=== PATIENT | female | born 1930 | race Caucasian/White ===

== ENCOUNTER 2018-05-23 05:42 | Observation (INO) ==
--- NOTE | 2018-05-23 05:48 | Emergency Department Note ---
Disposition Clinical Impression: History of fall, Inability to ambulate due to knee Left knee pain Qualifiers: Chronicity: acute Qualified Code(s): M25.562 - Pain in left knee Disposition: Admitted As Inpatient Condition: Fair Referrals: Juan R Garcia DO [Primary Care Provider] - Forms: ED Satisfaction Letter Lower Extremity Injury HPI - General Chief Complaint: ED Extremity Injury, Lower Stated Complaint: fall, left knee pain Time Seen by Provider: 05/23/18 05:45 Source: patient, EMS Mode of arrival: EMS Limitations: no limitations Nursing Notes Reviewed: Yes Vital Signs Reviewed: Yes - History of Present Illness HPI Narrative: Patient relates she lives with her in [facility]. She got up this early a.m. with her walker to go to the bathroom and fell on her way back to the bed. She fell to the floor and was unable to get up. She states she has had both knees replaced and his been told that there is some loosening and problem in the left knee replacement but that she is not a candidate for surgery per her quality assurance nurse. She felt as if the left knee had again given out and she fell to the ground. When assisted up she has had severe pain in the left knee with weightbearing such that she cannot bear weight or ambulate. She has no pain at rest. This pain is new for her. She denies any numbness or tingling distally in the lower extremities. She denies injury to her hip, pelvis or back. She has not had injury to her head, neck or upper extremities. She denies any other reason for falling. She has not had any type of stroke, seizure, palpitation or chest pain. She has not been having vomiting, diarrhea or bloody or black stools. She denies shortness of breath or fevers or chills. She denies any recent change in medicines. She indicates her sole trouble at this time is her left knee. She has been brought in by EMS. They were on scene for over an hour as she initially just wanted a lift assist. She was helped into a chair and she tried multiple times to stand and bear weight on the left leg but was ultimately unable and then consented to be transported in for evaluation. Pt Subjective Complaint: knee injury Injury location: Left knee Onset (ago): Just [employer] Mechanism of Injury: fall Context: fall, walking Place: home Pain Severity: moderate Improves with: rest Worsens with: weight bearing, movement, palpation Associated symptoms: Reports: unable to bear weight. Denies: snap/pop sensation, paresthesias, deformity - Related Data Home Medications Medication Instructions Recorded Confirmed Aspirin [Adult Aspirin Regimen] 81 mg PO DAILY 09/21/17 05/23/18 Gabapentin [Neurontin] 100 mg PO TID 09/21/17 05/23/18 Mirabegron [Myrbetriq] 50 mg PO DAILY 09/21/17 05/23/18 Multivit-Min/Folic Acid/Vit K1 1 each PO DAILY 09/21/17 05/23/18 [Multi For Her 50 Plus Softgel] RX: Doxycycline 100 mg PO DAILY 09/21/17 05/23/18 Symbicort 160/4.5 2 puff PO BID 09/21/17 05/23/18 Ferrous Sulfate [High Potency Iron] 134 mg PO QAM 05/23/18 05/23/18 Furosemide [Lasix] 40 mg PO DAILY 05/23/18 05/23/18 Metoprolol Succinate [Toprol Xl] 25 mg PO QAM 05/23/18 05/23/18 Potassium Chloride [Klor-Con 10] 10 meq PO QAM 05/23/18 05/23/18 RX: Primidone [Mysoline] 150 mg PO HS 05/23/18 05/23/18 Spironolactone [Aldactone] 25 mg PO DAILY 05/23/18 05/23/18 Topiramate [Topamax] 25 mg PO QAM 05/23/18 05/23/18 Allergies Allergy/AdvReac Type Severity Reaction Status Date / Time Sulfa (Sulfonamide Allergy Anaphylaxis Verified 09/21/17 18:19 Antibiotics) All systems ED: reviewed and negative except as stated. Past Medical History - Past Medical History Attestation: Yes The following information was validated with the patient. Source: patient, nursing notes reviewed Medical history: Reports: arthritis, asthma Surgical history: Reports: hip replacement (Right), knee replacement (Bilateral) Psychiatric history: Reports: anxiety - Social History Smoking Status: Never smoker Smokeless Tobacco Status: No Alcohol use: Reports: none Drug use: Reports: none Physical Exam - General Limitations: no limitations General appearance: alert, in no apparent distress - Head Head exam: atraumatic, normocephalic, normal inspection - Eye Eye exam: Present: normal appearance, PERRL, EOMI - ENT ENT exam: normal exam, normal oropharynx, mucous membranes moist - Neck Neck exam: Present: normal inspection, full ROM, trachea midline - Chest Chest inspection: Present: normal inspection, symmetric chest wall rise - Respiratory Respiratory exam: Present: normal lung sounds bilaterally. Absent: respiratory distress, wheezes, prolonged expiratory phase - Cardiovascular Cardiovascular exam: Present: regular rate, normal rhythm, normal heart sounds - Abdominal Exam Abdominal exam: Present: soft, Non-Tender. Absent: tenderness, distention, guarding, rebound, rigidity - Extremities Exam Extremities exam: Present: normal inspection, full ROM, normal capillary refill. Absent: tenderness, pedal edema - Expanded Lower Extremity Exam Neurovascular/Tendon exam: Present: normal capillary refill. Absent: motor deficit, sensory deficit, tendon deficit Gait: not tested/not observed - Back Exam Back exam: Present: normal inspection, full ROM. Absent: tenderness, vertebral tenderness - Neurological Exam Neurological exam: Present: alert, oriented X3, CN II-XII intact. Absent: motor sensory deficit - Psychiatric Psychiatric exam: Present: normal affect, normal mood - Skin Skin exam: Present: warm, dry, intact, normal color. Absent: diaphoresis, pallor Course Course Narrative: Imaging results are discussed with the patient. Currently she has significant pain with any standing or weightbearing such that I question her ability to return to independent living. I have discussed this with the patient. She states she has had evaluation of her left knee at [facility], [facility] and by Dr. Belle in [facility]. She has had a cardiac issue identified this summer and she has not been cleared for any surgical intervention. She relates on a daily basis she gets severe pain in the knee by the end of the day but is able to position the leg at night so that she has no pain and cannot rest. She Has no pain at this time but now has to severe pain to allow her to ambulate at all. I advised the patient that, upon completion of the radiology reading, that I will contact Dr. Hdz for observation and physical therapy assessment. 0720: The patient's imaging has just been red. There is no evidence for acute fracture or hardware compromise to the left hip or left knee. We have attempted to stand the patient but she will not bear weight on the left leg. A page has been placed to Dr. Hdz for her observation and further care. 0725: Dr. Hdz's accepted this patient to the floor. He agrees with physical therapy assessment and a consult to [facility] for an expedited consult in the hospital. 0730: The nurse mineral wool insulation supervisor for the hospital floor advises that they have to potential discharges, to swing beds coming in and are full at this time. We will observe the patient in the department and recontact Dr. Hdz about his preferred disposition and how many discharges he thinks he will have this morning. Vital Signs Temperature 99.5 F 05/23/18 05:45 Pulse Rate 68 05/23/18 05:45 Respiratory Rate 18 05/23/18 05:45 Blood Pressure 131/56 05/23/18 05:45 O2 Sat by Pulse Oximetry 97 05/23/18 05:45 Temperature 99.5 F 05/23/18 05:45 Pulse Rate 68 05/23/18 07:27 Respiratory Rate 18 05/23/18 07:27 Blood Pressure 115/51 05/23/18 07:27 O2 Sat by Pulse Oximetry 95 05/23/18 07:27 Oxygen Delivery Oxygen Delivery Room Air Extremity Injury, Lower - Differential Diagnosis Likely: sprain/strain, fracture - Medical Records Medical records reviewed: Yes I reviewed the patient's medical records. - Radiology Data Radiology results reviewed: Yes I reviewed the patient's radiology results. Two-view x-rays performed of the left knee with for films. This shows an intact prosthesis which appears to be securely cemented. There is no evidence for periprosthetic fracture. Patient does not have abnormal swelling or effusion. This is on my interpretation. Two-view series is obtained of the left hip and pelvis. This does not demonstrate evidence for acute hip fracture or dislocation. Patient appears to have some degenerative changes about the left hip. She is status post a right hip replacement. Pelvis is without evidence for fracture. This is on my interpretation. Impressions Knee X-Ray 05/23/18 05:46 IMPRESSION: Status post left total knee arthroplasty. No hardware complications. No acute osseous abnormality in the left knee. D/ / Theron Denton MD / Theron Denton MD Interpreting Provider: Theron Denton MD Hip X-Ray 05/23/18 06:20 IMPRESSION: No acute fracture or malalignment. D/ / Luis Briones MD / Luis Briones MD Interpreting Provider: Luis Briones MD
[2018-05-23] MEDS ORDERED: *HR* HYDROcodone/Acet 5/325 mg TABLET PO ONE (07:25)
[2018-05-23] MEDS ORDERED: Naloxone 0.4 MG/ML INJ IVP PRN (10:30)
[2018-05-23] MEDS ORDERED: Acetaminophen 325 MG TABLET PO PRN (10:30)
[2018-05-23] MEDS ORDERED: Ibuprofen 400 MG TABLET PO PRN (10:30)
[2018-05-23] MEDS ORDERED: traMADol 50 MG TABLET PO PRN (10:30)
[2018-05-23] MEDS ORDERED: Doxycycline 100 MG CAPSULE PO SCH (10:30)
[2018-05-23] MEDS: Budesonide/Formoterol 160/4.5 1 PUFF INH IH SCH ×2 (11:23→22:59)
[2018-05-23] MEDS: Furosemide 40 MG TABLET PO SCH (12:25)
[2018-05-23] MEDS: Spironolactone 25 MG TABLET PO SCH (12:25)
[2018-05-23] MEDS: Metoprolol XL (24 HR) Succ 25 MG TAB.ER.24H PO SCH (12:26)
[2018-05-23] MEDS: (Mirabegron [Myrbetriq] 50 MG) PO SCH (12:32)
[2018-05-23] MEDS: Multivit/Ca/Min/Fe/FA 1 TAB TABLET PO SCH (12:33)
[2018-05-23] MEDS: Aspirin Enteric Coated 81 MG Tablet PO SCH (12:33)
[2018-05-23] MEDS: Topiramate 25 MG TABLET PO SCH (12:34)
[2018-05-23] MEDS: Gabapentin 100 MG CAPSULE PO SCH ×3 (12:36→20:29)
--- NOTE | 2018-05-23 15:54 | Internal Med History&Physical ---
Date of Encounter: 05/23/18 Time of Encounter: 15:05 Internal Medicine - H&P: HPI Chief complaint: Fall, knee and ankle pain Admitted From: Emergency Dept Plans for Post Hospital Care: Home History of present illness: Ms. Oliveira is a 87 year old female who came to emergency room after she had a fall in her bedroom after returning from the bathroom. She states her knee "gave out" and she fell to the floor. Her was unable to get her off the floor so EMS was called. She was brought to emergency room and evaluated and admitted to [facility] for ongoing care needs. She reports she had bilateral total knee replacements 2001. She states she developed pain in her left knee in early summer 2017 without associated injury. She saw orthopedic staff at [facility] and had 2 different braces placed over the next few weeks with no relief. She then went to [facility] to a satellite of [facility] orthopedic group and was told she had a periprosthetic fracture but surgery was not recommended because of her cardiac condition. Her [facility] skeletal history significant otherwise for previous left foot surgery, bilateral shoulder replacements, low back surgery, and right total hip replacement. She denies gout. Past Med Surg Social Fam HX - Past Medical History Medical history: arthritis, asthma Additional medical history: "Tremors, undiagnosed, not Parkinsons" Psychiatric history: anxiety - Past Surgical History Surgical History: hip replacement, knee replacement Additional surgical history: Bilat knee replacements 2001. right hip replacement. Bilat shoulder replacements. Right foot ORIF. "stimulator for tremors" - Social History Smoking Status: Never smoker Smokeless Tobacco Status: No Alcohol use: none Drug use: none Internal Medicine - H&P: Meds Aspirin [Adult Aspirin Regimen] 81 mg PO DAILY 09/21/17 [History] Doxycycline 100 mg PO DAILY 09/21/17 [History] Gabapentin [Neurontin] 100 mg PO TID 09/21/17 [History] Mirabegron [Myrbetriq] 50 mg PO DAILY 09/21/17 [History] Multivit-Min/Folic Acid/Vit K1 [Multi For Her 50 Plus Softgel] 1 each PO DAILY 09/21/17 [History] Symbicort 160/4.5 2 puff PO BID 09/21/17 [History] Ferrous Sulfate [High Potency Iron] 134 mg PO QAM 05/23/18 [History] Furosemide [Lasix] 40 mg PO DAILY 05/23/18 [History] Metoprolol Succinate [Toprol Xl] 25 mg PO QAM 05/23/18 [History] Potassium Chloride [Klor-Con 10] 10 meq PO QAM 05/23/18 [History] Primidone [Mysoline] 150 mg PO HS 05/23/18 [History] Spironolactone [Aldactone] 25 mg PO DAILY 05/23/18 [History] Topiramate [Topamax] 25 mg PO QAM 05/23/18 [History] Allergy/AdvReac Type Severity Reaction Status Date / Time Sulfa (Sulfonamide Allergy Anaphylaxis Verified 09/21/17 18:19 Antibiotics) All Systems PM: A 10-system review of systems was performed and is negative for pertinent fi ndings except as documented above in the HPI. Review of systems: Gen.: She states her weight has decreased approximately 17 pounds in the past year Cardiovascular: She claims history of heart failure but she does not know detail results of an echocardiogram done earlier this year at [facility]. She reports she had a stress test also at [facility] without further intervention recommended. She has history of hypertension but denies MA DVT or pulmonary embolus Respiratory: She is a lifelong nonsmoker but reports history of asthma. GI: She denies disorders of her liver gallbladder or exocrine pancreas : She has overactive bladder. She denies other kidney or bladder disorders. Neurologic: She has essential tremor and has had deep brain stimulator placed. She denies large distribution strokes or seizures. Endocrine: She denies diabetes thyroid disease orhyperlipidemia Hematology/oncology: She has history of anemia. She denies internal malignancies or other blood disorders. Psychiatric: She denies anxiety depression other mental health issues. [place] skeletal: As per history of present illness - Constitutional Vitals: Temp Pulse Resp BP Pulse Ox 97.8 F 74 20 93/49 97 05/23/18 12:20 05/23/18 12:20 05/23/18 12:20 05/23/18 12:20 05/23/18 12:20 Internal Med - H&P Results - Impressions ITS Impressions Knee X-Ray 05/23/18 05:46 IMPRESSION: Status post left total knee arthroplasty. No hardware complications. No acute osseous abnormality in the left knee. D/ / Theron Denton MD / Theron Denton MD Interpreting Provider: Theron Denton MD Hip X-Ray 05/23/18 06:20 IMPRESSION: No acute fracture or malalignment. D/ / Luis Briones MD / Luis Briones MD Interpreting Provider: Luis Briones MD - VTE Documentation of Mechanical Device: Graduated compression elastic hosiery
[2018-05-23 16:11] LABS: Basophils % 0.2 %; Eosinophils # 0.1 K/mcL (0.0-0.6); Eosinophils % 0.9 %; Hematocrit 30.5 % (35.3-44.9); Hemoglobin 10.1 g/dL (11.5-15.4); Immature Granulocytes % 0.3 % (0-4); Lymphocytes # 0.9 K/mcL (0.6-4.6); Mean Corpuscular HGB Conc 33.1 g/dL (31.6-35.5); Mean Corpuscular Hemoglobin 31.8 pg (28.0-33.3); Mean Corpuscular Volume 95.9 fL (83.0-100.0); Mean Platelet Volume 11.3 fL (9.4-12.4); Monocytes # 0.7 K/mcL (0.0-1.3); Monocytes % 11.3 %; Neutrophils # 4.7 K/mcL (1.6-8.9); Platelet Count 127 K/mcL (140-400); Red Blood Count 3.18 M/mcL (3.82-4.97); Red Cell Distribution Width 12.6 % (11.5-14.5); Segmented Neutrophils % 73.3 %
[2018-05-23 16:31] LABS: Alanine Aminotransferase 15 Units/L (7-52); Albumin 3.4 g/dL (3.5-5.7); Albumin/Globulin Ratio 1.3 (1.1-2.2); Alkaline Phosphatase 67 Units/L (34-104); Aspartate Amino Transferase 16 Units/L (13-39); BUN/Creatinine Ratio 42 (6-26); Bilirubin,Total 0.5 mg/dL (0.3-1.0); Blood Urea Nitrogen 34 mg/dL (8-23); Calcium 8.8 mg/dL (8.6-10.3); Carbon Dioxide 32 mEq/L (23-29); Chloride 101 mEq/L (98-107); Globulin 2.6 g/dL (2.4-3.5); Glucose 114 mg/dL (70-105); Magnesium 2.3 mg/dL (1.6-2.6); Osmolality,Calculated 296 (280-300); Potassium 3.9 mEq/L (3.5-5.1); Sodium 139 mEq/L (136-145); eGFR For Non-African Americans > 60 (> 60)
[2018-05-23] MEDS: *HR* HYDROcodone/Acet 5/325 mg TABLET PO PRN ×2 (18:14→23:11)
[2018-05-23] MEDS: 0.45 % Sodium Chloride w/KCl 20 MEQ/1,000 ML MLS IVC SCH (18:14)
[2018-05-23] MEDS ORDERED: Primidone 50 MG TABLET PO SCH (21:00)
[2018-05-24 06:18] LABS: Basophils % 0.5 %; Eosinophils # 0.2 K/mcL (0.0-0.6); Eosinophils % 2.6 %; Hematocrit 30.6 % (35.3-44.9); Immature Granulocytes % 0.2 % (0-4); Lymphocytes # 1.4 K/mcL (0.6-4.6); Lymphocytes % 23.2 %; Mean Corpuscular HGB Conc 32.7 g/dL (31.6-35.5); Mean Corpuscular Hemoglobin 31.6 pg (28.0-33.3); Mean Corpuscular Volume 96.8 fL (83.0-100.0); Mean Platelet Volume 11.6 fL (9.4-12.4); Monocytes # 0.7 K/mcL (0.0-1.3); Monocytes % 12.7 %; Neutrophils # 3.5 K/mcL (1.6-8.9); Platelet Count 120 K/mcL (140-400); Red Blood Count 3.16 M/mcL (3.82-4.97); Red Cell Distribution Width 12.8 % (11.5-14.5); Segmented Neutrophils % 60.8 %
[2018-05-24 06:49] LABS: BUN/Creatinine Ratio 33 (6-26); Blood Urea Nitrogen 24 mg/dL (8-23); Calcium 8.6 mg/dL (8.6-10.3); Carbon Dioxide 29 mEq/L (23-29); Chloride 103 mEq/L (98-107); Glucose 104 mg/dL (70-105); Osmolality,Calculated 292 (280-300); Potassium 3.9 mEq/L (3.5-5.1); Sodium 139 mEq/L (136-145); eGFR For Non-African Americans > 60 (> 60)
[2018-05-24 09:37] LABS: % Iron Saturation 15 % (15-50); Iron 34 mcg/dL (50-170); Transferrin 167 mg/dL (203-362)
[2018-05-24 10:03] LABS: Ferritin 178 ng/mL (10-120)
[2018-05-24] MEDS: Budesonide/Formoterol 160/4.5 1 PUFF INH IH SCH (10:05)
[2018-05-24 10:10] LABS: Folate > 22.3 ng/mL (3.0-16.0); Vitamin B12 467 pg/mL (250-1100)
[2018-05-24] MEDS: Multivit/Ca/Min/Fe/FA 1 TAB TABLET PO SCH (11:02)
[2018-05-24] MEDS: Gabapentin 100 MG CAPSULE PO SCH ×2 (11:02→14:30)
[2018-05-24] MEDS: Furosemide 40 MG TABLET PO SCH (11:03)
[2018-05-24] MEDS: Aspirin Enteric Coated 81 MG Tablet PO SCH (11:03)
[2018-05-24] MEDS: Topiramate 25 MG TABLET PO SCH (11:03)
[2018-05-24] MEDS: Spironolactone 25 MG TABLET PO SCH (11:03)
[2018-05-24] MEDS: Metoprolol XL (24 HR) Succ 25 MG TAB.ER.24H PO SCH (11:03)
[2018-05-24] MEDS: (Mirabegron [Myrbetriq] 50 MG) PO SCH (11:03)
[2018-05-24 11:44] VITALS: BP 110/61
--- NOTE | 2018-05-24 12:48 | Discharge Summary ---
Orders not resulted at time of discharge: Pending orders 05/23/18 14:30 CT 3D reconstruction [CT] Routine Date of Encounter: 05/24/18 Time of Encounter: 12:30 - Discharge Diagnosis (1) Tibia fracture Priority: Primary Status: Acute Qualifiers: Encounter type: initial encounter Tibia location: proximal Fracture type: closed Fracture morphology: unspecified fracture morphology Laterality: left Qualified Code(s): S82.102A - Unspecified fracture of upper end of left tibia, initial encounter for closed fracture (2) Nonischemic cardiomyopathy Priority: Secondary Status: Chronic (3) Anemia Priority: Secondary Status: Acute Qualifiers: Anemia type: unspecified type Qualified Code(s): D64.9 - Anemia, unspecified Hospital course: Ms. Oliveira is a 87 year old female who came to emergency room after she had a fall in her bedroom after returning from the bathroom. She states her knee "gave out" and she fell to the floor. Her was unable to get her off the floor so EMS was called. She was brought to emergency room and evaluated and admitted to [facility] for ongoing care needs. Initial orders were written by the emergency room physician. I saw her on May 23 and performed the history and physical. X-rays of knee and hip in emergency room showed no evidence of fracture. She complained of severe left knee pain so I ordered CT of the knee which showed suspected periprosthetic fracture along the lateral tibia with a large knee effusion. Ankle x-ray showed no fracture. I spoke with the patient's orthopedist at [facility] who recommended she be transferred to [place]. Arrangements were made afternoon of May 24 for transfer. Review of records from [facility] showed heart catheter December 2017 showing no significant coronary artery disease but LVEF of 35-40%. BN peptide on May 24 was minimally elevated at 155 and she had no symptoms of heart failure. Anemia testing showed iron 34, transferrin saturation 15%, transferrin 167, ferritin 178, B12 467, and folate >22.3. - Time Spent with Patient Total time spent providing and/or coordinating discharge services: - Discharge Medications Home Medications: Aspirin [Adult Aspirin Regimen] 81 mg PO DAILY 09/21/17 [History] Doxycycline 100 mg PO DAILY 09/21/17 [History] Gabapentin [Neurontin] 100 mg PO TID 09/21/17 [History] Mirabegron [Myrbetriq] 50 mg PO DAILY 09/21/17 [History] Multivit-Min/Folic Acid/Vit K1 [Multi For Her 50 Plus Softgel] 1 each PO DAILY 09/21/17 [History] Symbicort 160/4.5 2 puff PO BID 09/21/17 [History] Ferrous Sulfate [High Potency Iron] 134 mg PO QAM 05/23/18 [History] Furosemide [Lasix] 40 mg PO DAILY 05/23/18 [History] Metoprolol Succinate [Toprol Xl] 25 mg PO QAM 05/23/18 [History] Potassium Chloride [Klor-Con 10] 10 meq PO QAM 05/23/18 [History] Primidone [Mysoline] 150 mg PO HS 05/23/18 [History] Spironolactone [Aldactone] 25 mg PO DAILY 05/23/18 [History] Topiramate [Topamax] 25 mg PO QAM 05/23/18 [History] Allergies/Adverse Reactions: Allergy/AdvReac Type Severity Reaction Status Date / Time Sulfa (Sulfonamide Allergy Anaphylaxis Verified 09/21/17 18:19 Antibiotics) Date of admission: 05/23/18 10:26 Primary care physician: Juan R Garcia DO Consults: 05/23/18 10:30 Consult to Physical Therapy [CONS] Routine Comment: Evaluate, develop and implement POC Reason for Consult: Assessment for ability and safety and ambulation. Does patient have active BEDREST order?: No Is patient medically & hemodynamically stable?: Yes Patient assessed for mobility or mobilized this visit?: Yes - Constitutional Vitals: Temp Pulse Resp BP Pulse Ox 98.2 F 86 18 110/61 97 05/24/18 11:00 05/24/18 11:00 05/24/18 11:00 05/24/18 11:00 05/24/18 11:00 - Patient Status Disposition: Transfer Other Condition: Fair - Discharge Instructions Follow Up With: Juan R Garcia DO [Primary Care Provider] - 1 week - VTE Documentation of Mechanical Device: Graduated compression elastic hosiery
[2018-05-24] MEDS ORDERED: *HR* HYDROcodone/Acet 5/325 mg TABLET PO PRN (14:13)
[2018-05-24] MEDS: 0.45 % Sodium Chloride w/KCl 20 MEQ/1,000 ML MLS IVC SCH (16:51)
== END 2018-05-24 18:00 | disposition other institution (70) ==
LOC: INPPIK 05:42 → EMEROOPIK 05:42 → INPPIK 10:39
PROVIDERS: ADMIT Internal Medicine; ATTEND Internal Medicine

== ENCOUNTER 2018-08-29 16:16 | Inpatient (IN) ==
--- NOTE | 2018-08-29 16:22 | Emergency Department Note ---
Disposition Clinical Impression: Pneumonia, Weakness Disposition: Admitted As Inpatient Condition: Fair Forms: ED Satisfaction Letter Time of Disposition: 17:39 SOB HPI - General Chief Complaint: ED Shortness of Breath/Dyspnea Stated Complaint: deep cough, weak, failed outpt tx for pneumonia Time Seen by Provider: 08/29/18 16:18 Source: patient Mode of arrival: wheelchair Limitations: age Nursing Notes Reviewed: Yes Vital Signs Reviewed: Yes - History of Present Illness 87-year-old female seen at family physician's office today for recheck from recent case of pneumonia who presents with increasing weakness cough congestion shortness of breath failed outpatient therapy treatment for pneumonia. Patient's been having fever cough congestion shortness of breath inability to get up and get about dyspnea with activity denies any diarrhea melena hematochezia hematemesis denies any numbness tingling weakness recently gain or weight loss all systems have been reviewed and are otherwise negative Pt Subjective Complaint: shortness of breath Onset (ago): week(s) (3) Context: recent illness Severity: moderate, severe Consistency/Duration: intermittent Improves with: nothing Worsens with: exertion, movement, coughing Associated symptoms: Reports: fever, cough, wheezing, sputum production, orthopnea. Denies: lower extremity pain, parasthesias, palpitations, hemoptys is, diaphoresis, nausea/vomiting, abdominal pain, sense of impending doom Treatment prior to arrival: other (Family physician antibiotics) Cough present: Yes Cough Description: Involuntary, Productive, Weak Cough Frequency: Intermittent Sputum production: Yes Sputum Amount: Small Sputum Color: Yellow - Related Data Home Medications Medication Instructions Recorded Confirmed Aspirin [Adult Aspirin Regimen] 81 mg PO DAILY 09/21/17 08/16/18 Doxycycline 100 mg PO DAILY 09/21/17 08/16/18 Gabapentin [Neurontin] 100 mg PO TID 09/21/17 08/16/18 Mirabegron [Myrbetriq] 50 mg PO DAILY 09/21/17 08/16/18 Multivit-Min/Folic Acid/Vit K1 1 each PO DAILY 09/21/17 08/16/18 [Multi For Her 50 Plus Softgel] Symbicort 160/4.5 2 puff PO BID 09/21/17 08/16/18 Ferrous Sulfate [High Potency Iron] 134 mg PO QAM 05/23/18 08/16/18 Furosemide [Lasix] 40 mg PO DAILY 05/23/18 08/16/18 Metoprolol Succinate [Toprol Xl] 25 mg PO QAM 05/23/18 08/16/18 Potassium Chloride [Klor-Con 10] 10 meq PO QAM 05/23/18 08/16/18 Primidone [Mysoline] 150 mg PO HS 05/23/18 08/16/18 Spironolactone [Aldactone] 25 mg PO DAILY 05/23/18 08/16/18 Topiramate [Topamax] 25 mg PO QAM 05/23/18 08/16/18 Ascorbate Calcium [Vitamin C] 500 mg PO DAILY 08/16/18 08/16/18 Budesonide/Formoterol 160/4.5 2 puff IH BIDR 08/16/18 08/16/18 [Symbicort 160/4.5] Cyclobenzaprine [Flexeril] 10 mg PO TID 08/16/18 08/16/18 Primidone [Mysoline] 150 mg PO HS 08/16/18 08/16/18 Sacubitril/Valsartan 24/26 mg 1 tab PO BID 08/16/18 08/16/18 [Entresto 24 mg-26 mg Tablet] metOLazone [Zaroxolyn] 2.5 mg PO DAILY 08/16/18 08/16/18 Previous Rx's Medication Instructions Recorded predniSONE [PredniSONE] 20 mg PO DAILY #13 tablet 08/16/18 Allergies Allergy/AdvReac Type Severity Reaction Status Date / Time Sulfa (Sulfonamide Allergy Anaphylaxis Verified 08/29/18 16:19 Antibiotics) All systems ED: reviewed and negative except as stated. Review of Systems: As Per HPI Constitutional: Reports: fever, weakness. Denies: chills Eyes: Denies: eye pain, eye discharge ENT ED: Reports: congestion. Denies: ear pain, throat pain, dental pain Cardiovascular: Reports: dyspnea on exertion. Denies: chest pain, palpitations Respiratory: Reports: cough, dyspnea, wheezes, sputum production Gastrointestinal: Denies: abdominal pain, nausea, vomiting Genitourinary: Denies: urgency, dysuria, frequency Musculoskeletal: Denies: back pain, neck pain Integumentary: Denies: rash, abrasion Neurological: Reports: weakness. Denies: headache Psychiatric: Denies: anxiety, depression Endocrine: Reports: fatigue. Denies: heat or cold intolerance Hematological/Lymphatic: Denies: easy bleeding, easy bruising Allergic/Immunologic: Denies: facial swelling Past Medical History - Past Medical History Attestation: Yes The following information was validated with the patient. Source: patient, old records reviewed, nursing notes reviewed Medical history: Reports: arthritis, asthma Surgical history: Reports: hip replacement, knee replacement Psychiatric history: Reports: anxiety - Social History Smoking Status: Never smoker Smokeless Tobacco Status: No Alcohol use: Reports: none Drug use: Reports: none Physical Exam - General Limitations: age General appearance: alert, in no apparent distress, anxious - Head Head exam: atraumatic, normocephalic, normal inspection - Eye Eye exam: Present: normal appearance, PERRL, EOMI - ENT ENT exam: normal exam, normal oropharynx, mucous membranes moist, TM's normal bilaterally, normal external ear exam - Neck Neck exam: Present: normal inspection, full ROM, trachea midline - Chest Chest inspection: Present: normal inspection, symmetric chest wall rise - Respiratory Respiratory exam: Present: wheezes, prolonged expiratory phase, other (Few rhonchi clearing with cough) - Cardiovascular Cardiovascular exam: Present: regular rate, normal rhythm, normal heart sounds - Abdominal Exam Abdominal exam: Present: soft, Non-Tender, normal bowel sounds. Absent: mass, pulsatile mass - Expanded Upper Extremity Exam Shoulder exam: Present: normal inspection, full ROM Arm exam: Present: normal inspection, full ROM Elbow exam: Present: normal inspection, full ROM Forearm/Wrist exam: Present: normal inspection, full ROM Hand exam: Present: normal inspection, full ROM Vascular exam: Normal: capillary refill, radial pulse - Expanded Lower Extremity Exam Hip/Pelvis exam: Present: normal inspection, full ROM Upper leg exam: Present: normal inspection, full ROM Knee exam: Present: normal inspection, full ROM Lower leg exam: Present: normal inspection, full ROM, swelling. Absent: Homans' sign Ankle exam: Present: normal inspection, full ROM, swelling Foot/toe exam: Present: normal inspection, full ROM, swelling Neurovascular/Tendon exam: Present: normal capillary refill, normal fine/light touch. Absent: motor deficit, sensory deficit, tendon deficit Gait: not tested/not observed - Back Exam Back exam: Present: normal inspection, full ROM. Absent: muscle spasm - Neurological Exam Neurological exam: Present: alert, oriented X3, CN II-XII intact - Psychiatric Psychiatric exam: Present: normal affect, normal mood - Skin Skin exam: Present: warm, dry, intact, normal color Course Course Narrative: Patient seen and evaluated examinations performed laboratory data is ordered Dr. Hdz has been notified for admission anticipate transfer to [facility] Vital Signs Temperature 97.8 F 08/29/18 16:20 Pulse Rate 78 08/29/18 16:20 Respiratory Rate 18 08/29/18 16:20 Blood Pressure 116/89 08/29/18 16:20 O2 Sat by Pulse Oximetry 98 08/29/18 16:20 Temperature 97.8 F 08/29/18 16:20 Pulse Rate 79 08/29/18 17:27 Respiratory Rate 16 08/29/18 17:27 Blood Pressure 108/58 08/29/18 17:27 O2 Sat by Pulse Oximetry 98 08/29/18 17:27 Oxygen Delivery Oxygen Delivery Room Air Shortness of Breath/Dyspnea - Differential Diagnosis Likely: acute exacerbation of chronic obstructive airways disease, congestive heart failure, pneumonia - Medical Records Medical records reviewed: Yes I reviewed the patient's medical records. - Lab Data Lab results reviewed: Yes I reviewed the patient's lab results. Result diagrams: 08/29/18 16:37 08/29/18 16:37 Lab Results 08/29/18 08/29/18 08/29/18 Range/Units 16:37 16:37 16:37 WBC 7.2 (4.3-11.1) K/mcL RBC 3.55 L (3.82-4.97) M/mcL Hgb 11.4 L (11.5-15.4) g/dL Hct 34.0 L (35.3-44.9) % MCV 95.8 (83.0-100.0) fL MCH 32.1 (28.0-33.3) pg MCHC 33.5 (31.6-35.5) g/dL RDW 13.6 (11.5-14.5) % Plt Count 110 L (140-400) K/mcL MPV 10.6 (9.4-12.4) fL Immature Gran % 0.3 (0-4) % Seg Neutrophils % 65.0 % Lymphocytes % 21.0 % Monocytes % 10.6 % Eosinophils % 2.5 % Basophils % 0.6 % Neutrophils # 4.7 (1.6-8.9) K/mcL Lymphocytes # 1.5 (0.6-4.6) K/mcL Monocytes # 0.8 (0.0-1.3) K/mcL Eosinophils # 0.2 (0.0-0.6) K/mcL Basophils # 0.0 (0.0-0.2) K/mcL PT 11.6 (9.4-12.1) Seconds INR 1.0 APTT 26.4 (26.0-36.0) Seconds Sodium 138 (136-145) mEq/L Potassium 4.3 (3.5-5.1) mEq/L Chloride 100 (98-107) mEq/L Carbon Dioxide 30 H (23-29) mEq/L BUN 37 H (8-23) mg/dL Creatinine 1.23 H (0.60-1.20) mg/dL Est GFR ( Amer) 50 L (> 60) Est GFR (Non-Af Amer) 41 L (> 60) BUN/Creatinine Ratio 30 H (6-26) Glucose 96 (70-105) mg/dL Calculated Osmolality 295 (280-300) Lactic Acid (0.5-2.2) mmol/L Calcium 8.9 (8.6-10.3) mg/dL Total Bilirubin 0.4 (0.3-1.0) mg/dL AST 21 (13-39) Units/L ALT 19 (7-52) Units/L Alkaline Phosphatase 84 (34-104) Units/L Troponin I (< 0.04) ng/mL B-Natriuretic Peptide (Less than 100) pg/mL Serum Total Protein 6.6 (6.4-8.9) g/dL Albumin 3.9 (3.5-5.7) g/dL Globulin 2.7 (2.4-3.5) g/dL Albumin/Globulin Ratio 1.4 (1.1-2.2) 08/29/18 08/29/18 08/29/18 Range/Units 16:37 16:37 16:37 WBC (4.3-11.1) K/mcL RBC (3.82-4.97) M/mcL Hgb (11.5-15.4) g/dL Hct (35.3-44.9) % MCV (83.0-100.0) fL MCH (28.0-33.3) pg MCHC (31.6-35.5) g/dL RDW (11.5-14.5) % Plt Count (140-400) K/mcL MPV (9.4-12.4) fL Immature Gran % (0-4) % Seg Neutrophils % % Lymphocytes % % Monocytes % % Eosinophils % % Basophils % % Neutrophils # (1.6-8.9) K/mcL Lymphocytes # (0.6-4.6) K/mcL Monocytes # (0.0-1.3) K/mcL Eosinophils # (0.0-0.6) K/mcL Basophils # (0.0-0.2) K/mcL PT (9.4-12.1) Seconds INR APTT (26.0-36.0) Seconds Sodium (136-145) mEq/L Potassium (3.5-5.1) mEq/L Chloride (98-107) mEq/L Carbon Dioxide (23-29) mEq/L BUN (8-23) mg/dL Creatinine (0.60-1.20) mg/dL Est GFR ( Amer) (> 60) Est GFR (Non-Af Amer) (> 60) BUN/Creatinine Ratio (6-26) Glucose (70-105) mg/dL Calculated Osmolality (280-300) Lactic Acid 1.2 (0.5-2.2) mmol/L Calcium (8.6-10.3) mg/dL Total Bilirubin (0.3-1.0) mg/dL AST (13-39) Units/L ALT (7-52) Units/L Alkaline Phosphatase (34-104) Units/L Troponin I < 0.03 (< 0.04) ng/mL B-Natriuretic Peptide 116 H (Less than 100) pg/mL Serum Total Protein (6.4-8.9) g/dL Albumin (3.5-5.7) g/dL Globulin (2.4-3.5) g/dL Albumin/Globulin Ratio (1.1-2.2) - Radiology Data Radiology results reviewed: Yes I reviewed the patient's radiology results. ITS Impressions Chest X-Ray 08/29/18 16:20 IMPRESSION: No evidence of acute process in the chest. D/ / Abilio Atkins / Abilio Atkins Interpreting Provider: Abilio Atkins - EKG Data EKG attestation: Yes I reviewed and interpreted this EKG. EKG results narrative: Paced rhythm rate 76 ID 216 your S1 58 QT 451 axis CCLVIII appears to be atrial ventricular pacer Critical Care Time Critical Care Time: No
[2018-08-29 16:45] LABS: Basophils % 0.6 %; Eosinophils # 0.2 K/mcL (0.0-0.6); Eosinophils % 2.5 %; Hemoglobin 11.4 g/dL (11.5-15.4); Immature Granulocytes % 0.3 % (0-4); Lymphocytes # 1.5 K/mcL (0.6-4.6); Mean Corpuscular HGB Conc 33.5 g/dL (31.6-35.5); Mean Corpuscular Hemoglobin 32.1 pg (28.0-33.3); Mean Corpuscular Volume 95.8 fL (83.0-100.0); Mean Platelet Volume 10.6 fL (9.4-12.4); Monocytes # 0.8 K/mcL (0.0-1.3); Monocytes % 10.6 %; Neutrophils # 4.7 K/mcL (1.6-8.9); Platelet Count 110 K/mcL (140-400); Red Blood Count 3.55 M/mcL (3.82-4.97); Red Cell Distribution Width 13.6 % (11.5-14.5)
[2018-08-29 16:59] LABS: Prothrombin Time 11.6 Seconds (9.4-12.1)
[2018-08-29 17:02] LABS: Activated Partial Thrombo Time 26.4 Seconds (26.0-36.0)
[2018-08-29 17:05] LABS: Albumin 3.9 g/dL (3.5-5.7); Albumin/Globulin Ratio 1.4 (1.1-2.2); Bilirubin,Total 0.4 mg/dL (0.3-1.0); Calcium 8.9 mg/dL (8.6-10.3); Globulin 2.7 g/dL (2.4-3.5); Potassium 4.3 mEq/L (3.5-5.1); Total Protein 6.6 g/dL (6.4-8.9)
[2018-08-29] MEDS ORDERED: Azithromycin 500 MG in D5% in Water 250 ML IVPB ONE ×2 (17:40→18:26)
[2018-08-29 17:48] LABS: Bilirubin,Urine Negative (Negative); Blood,Urine Negative (Negative); Clarity,Urine Clear (Clear); Color,Urine Yellow (Yellow); Glucose,Urine (UA) Normal (Normal); Ketones,Urine Negative (Negative); Leukocyte Esterase,Urine Negative (Negative); Nitrite,Urine Negative (Negative); Protein,Urine Negative (Neg-Trace); Specific Gravity,Urine 1.015 (1.010-1.025); Urobilinogen,Urine Normal (Normal)
[2018-08-29] MEDS ORDERED: Ondansetron 4 MG/2 ML VIAL IVP PRN (18:26)
[2018-08-29] MEDS ORDERED: Naloxone 0.4 MG/ML INJ IVP PRN (18:26)
[2018-08-29] MEDS: 0.9 % Sodium Chloride 1,000 ML IVC SCH (21:22)
[2018-08-30] MEDS: 0.9 % Sodium Chloride 1,000 ML IVC SCH (08:23)
[2018-08-30] MEDS: Azithromycin 500 MG in D5% in Water 250 ML IVPB SCH (08:32)
[2018-08-30] MEDS: cefTRIAXone 1,000 MG in Water for inj. (sterile) 20 ML 10 ML IVP SCH (08:32)
[2018-08-30 09:31] LABS: Basophils % 0.6 %; Eosinophils # 0.2 K/mcL (0.0-0.6); Eosinophils % 3.4 %; Hematocrit 34.5 % (35.3-44.9); Immature Granulocytes % 0.3 % (0-4); Lymphocytes # 1.4 K/mcL (0.6-4.6); Lymphocytes % 21.5 %; Mean Corpuscular HGB Conc 31.9 g/dL (31.6-35.5); Mean Corpuscular Volume 97.2 fL (83.0-100.0); Mean Platelet Volume 11.2 fL (9.4-12.4); Monocytes # 0.5 K/mcL (0.0-1.3); Monocytes % 8.5 %; Neutrophils # 4.2 K/mcL (1.6-8.9); Platelet Count 116 K/mcL (140-400); Red Blood Count 3.55 M/mcL (3.82-4.97); Red Cell Distribution Width 13.6 % (11.5-14.5); Segmented Neutrophils % 65.7 %
[2018-08-30 10:52] LABS: BUN/Creatinine Ratio 28 (6-26); Blood Urea Nitrogen 29 mg/dL (8-23); Calcium 8.5 mg/dL (8.6-10.3); Carbon Dioxide 30 mEq/L (23-29); Chloride 103 mEq/L (98-107); Glucose 139 mg/dL (70-105); Osmolality,Calculated 298 (280-300); Potassium 3.9 mEq/L (3.5-5.1); Sodium 140 mEq/L (136-145); eGFR For Non-African Americans 51 (> 60)
--- NOTE | 2018-08-30 12:36 | Internal Med History&Physical ---
Date of Encounter: 08/30/18 Time of Encounter: 11:40 Assessment and Plan (1) Bronchitis Current visit: Yes Status: Acute Chest CT will be done to further evaluate. She has been started on Rocephin and Zithromax. Lactobacillus will be added. (2) Dehydration Current visit: Yes Status: Acute BUN and creatinine were 37 and 1.23 respectively in emergency room. They have improved to 29 and 1.03 respectively with IV fluids. (3) Heart failure Current visit: Yes Status: Chronic Continue Lasix, Cozaar, and Toprol. Qualifiers: Heart failure type: diastolic Heart failure chronicity: chronic Qualified Code(s): I50.32 - Chronic diastolic (congestive) heart failure (4) Anemia Current visit: No Status: Acute Anemia testing May 2018 reviewed. Hemoglobin has risen to 11.4 in emergency room. Check iron profile. Qualifiers: Anemia type: unspecified type Qualified Code(s): D64.9 - Anemia, unspecified (5) Weakness Current visit: Yes Status: Acute PT and OT evaluations will be ordered. (6) Weight loss Current visit: Yes Status: Acute TSH and CT of abdomen/chest will be ordered. Internal Medicine - H&P: HPI Chief complaint: Cough, dyspnea, weakness Admitted From: Emergency Dept Plans for Post Hospital Care: Home History of present illness: Ms. Oliveira is a 87 year old female who came to emergency room from her PCP office after she was found to have unimproved respiratory infection symptoms following 1 week treatment with antibiotics, cough syrup and nebulizers. She was evaluated in emergency room and felt to have possible pneumonia and was admitted to [facility] floor for ongoing care needs. She reports the cough is productive of yellow mucus but denies hemoptysis. She has had no fevers but reports chills. She denies vomiting or diarrhea. Respiratory history is significant for being a lifelong nonsmoker. She reports a history of asthma. She does not use home oxygen. Past Med Surg Social Fam HX - Past Medical History Medical history: arthritis, asthma, CHF Additional medical history: "Tremors, undiagnosed, not Parkinsons" Psychiatric history: anxiety - Past Surgical History Surgical History: hip replacement, knee replacement Additional surgical history: Multiple Back surgeries - Social History Smoking Status: Never smoker Smokeless Tobacco Status: No Alcohol use: none Drug use: none Internal Medicine - H&P: Meds Gabapentin [Neurontin] 100 mg PO TID 09/21/17 [History] Multivit-Min/Folic Acid/Vit K1 [Multi For Her 50 Plus Softgel] 1 each PO DAILY 09/21/17 [History] Ferrous Sulfate [High Potency Iron] 134 mg PO QAM 05/23/18 [History] Furosemide [Lasix] 40 mg PO DAILY 05/23/18 [History] Metoprolol Succinate [Toprol Xl] 25 mg PO QAM 05/23/18 [History] Potassium Chloride [Klor-Con 10] 10 meq PO QAM 05/23/18 [History] Primidone [Mysoline] 150 mg PO HS 05/23/18 [History] Topiramate [Topamax] 25 mg PO QAM 05/23/18 [History] Ascorbate Calcium [Vitamin C] 500 mg PO DAILY 08/16/18 [History] Budesonide/Formoterol 160/4.5 [Symbicort 160/4.5] 2 puff IH BIDR 08/16/18 [History] Cyclobenzaprine [Flexeril] 10 mg PO TID 08/16/18 [History] Sacubitril/Valsartan 24/26 mg [Entresto 24 mg-26 mg Tablet] 1 tab PO BID 08/16/18 [History] Aspirin [Ecotrin] 325 mg PO DAILY 08/29/18 [History] Fluticasone/Vilanterol [Breo Ellipta 200-25 Mcg INH] 1 each IH BID 08/29/18 [History] Losartan [Cozaar] 50 mg PO DAILY 08/29/18 [History] Allergy/AdvReac Type Severity Reaction Status Date / Time Sulfa (Sulfonamide Allergy Anaphylaxis Verified 08/29/18 16:19 Antibiotics) All Systems PM: A 10-system review of systems was performed and is negative for pertinent findings except as documented above in the HPI. Review of systems: Review of systems from her May 2018 [facility] hospitalization were reviewed and revised as below. Gen.: Her weight has decreased from 90.718 kg 05/23/2018 to present weight of 82.554 kg. She stated at the May 2018 hospitalization her weight had decreased approximately 17 pounds in the past year Cardiovascular: She has history of hypertension but denies [place] DVT or pulmonary embolus. She claims history of heart failure but she does not know detail results of an echocardiogram done 2018 at [facility]. Echocardiogram 10/19/2017 at [facility] showed LVEF of 50-55%. There was moderate mitral regurgitation, [id number] aortic regurgitation, mild tricuspid regurgitation, and mild to moderate pulmonic regurgitation. Mild diastolic dysfunction was seen with E/A ratio of 0.6. She reports she had a stress test also at [facility] without further intervention recommended. She has had pacemaker placed. Respiratory: As per history of present illness GI: She denies disorders of her liver gallbladder or exocrine pancreas : She has overactive bladder. She denies other kidney or bladder disorders. Neurologic: She has essential tremor and has had deep brain stimulator placed. She denies large distribution strokes or seizures. Endocrine: She denies diabetes thyroid disease or hyperlipidemia Hematology/oncology: She has history of anemia. She denies internal malignancies or other blood disorders. Psychiatric: She denies anxiety depression other mental health issues. [place] skeletal: She had bilateral total knee replacements 2001. She had periprosthetic fracture along the lateral tibia with a large knee effusion May 2018 following a fall. She was transferred from [facility] to [place] where left total knee replacement was done. She has had left foot surgery, bilateral shoulder replacements, low back surgery, and right total hip replacement. She denies gout. - Constitutional Vitals: Temp Pulse Resp BP Pulse Ox 98.1 F 76 20 97/61 95 08/30/18 10:00 08/30/18 10:00 08/30/18 10:00 08/30/18 10:00 08/30/18 10:00 Exam: Gen.: She is a well-developed well-nourished female resting in bed who appears slightly dyspneic. She coughs frequently during examination. HEENT: Head is atraumatic and normocephalic. Eyes: EOMI. There is no scleral icterus. Mouth: Mucosa is moist. Neck: Supple and nontender. There is no thyromegaly or adenopathy noted. Heart: Regular without murmurs gallops or ectopics Lungs: She has scattered rhonchi. No inspiratory crackles, egophony, or wheezing is heard. Abdomen: Soft and nontender. No masses or guarding are noted. Extremities: She has well-healed scars over her knees. There is trace to 1+ edema of the dorsum of the feet and lower legs bilaterally. She has DJD changes of her hands. Neurologic: Mental status: She is talkative and a good historian. Cranial nerves: Smile is symmetric. Forehead wrinkles bilaterally. Tongue protrudes midline. EOMI. Motor: There is no pronator drift. Cerebellar: Finger to nose is intact bilaterally. Skin: Warm and dry Internal Med - H&P Results - Labs CBC & Chem 7: 08/30/18 09:16 08/30/18 09:16 Labs: Short CBC 08/29/18 08/30/18 Range/Units 16:37 09:16 WBC 7.2 6.4 (4.3-11.1) K/mcL Hgb 11.4 L 11.0 L (11.5-15.4) g/dL Hct 34.0 L 34.5 L (35.3-44.9) % Plt Count 110 L 116 L (140-400) K/mcL Neutrophils # 4.7 4.2 (1.6-8.9) K/mcL BMP 08/29/18 08/30/18 16:37 09:16 Sodium 138 140 Potassium 4.3 3.9 Chloride 100 103 Carbon Dioxide 30 H 30 H BUN 37 H 29 H Creatinine 1.23 H 1.03 Glucose 96 139 H Calcium 8.9 8.5 L Cardiac Enzymes 08/29/18 Range/Units 16:37 Troponin I < 0.03 (< 0.04) ng/mL Liver Function 08/29/18 Range/Units 16:37 Total Bilirubin 0.4 (0.3-1.0) mg/dL AST 21 (13-39) Units/L ALT 19 (7-52) Units/L Alkaline Phosphatase 84 (34-104) Units/L Albumin 3.9 (3.5-5.7) g/dL Urine 08/29/18 Range/Units 17:40 Urine Color Yellow (Yellow) Urine Clarity Clear (Clear) Urine pH 7.0 (5.0-8.0) pH Units Ur Specific [place] 1.015 (1.010-1.025) Urine Protein Negative (Neg-Trace) mg/dL Urine Glucose (UA) Normal (Normal) mg/dL - Impressions ITS Impressions Chest X-Ray 08/29/18 16:20 IMPRESSION: No evidence of acute process in the chest. D/ / Abilio Atkins / Abilio Atkins Interpreting Provider: Abilio Atkins
[2018-08-30] MEDS: (Fluticasone/Vilanterol [Breo Ellipta 200-25 Mcg Inh]) IH SCH (21:00)
[2018-08-30] MEDS: SACUBITRIL/VALSARTAN 24/26 MG TABLET PO SCH (21:00)
--- NOTE | 2018-08-30 21:06 | Electrocardiograph Report ---
[place] [id number] Test Date: 2018-08-29 Pat Name: Radha Oliveira Department: EDP-14 Room: [facility] Gender: F Corporate Compliance Manager: : [id number] Requested By: Esperanza Spicer Order Number: [id number] Reading MD: Gracy Case Measurements Intervals [place] Rate: 76 P: 88 NE: 216 QRS: 258 QRSD: 158 T: 74 QT: 451 QTc: 508 Interpretive Statements Atrial-sensed ventricular-paced rhythm No further analysis attempted due to paced rhythm Electronically Signed On 08-30-2018 21:05:01 EST by Gracy Case
[2018-08-30] MEDS: Primidone 50 MG TABLET PO SCH (21:28)
[2018-08-30] MEDS: Lactobacillus 1 EACH CAP.SPRINK PO SCH (21:29)
[2018-08-30] MEDS: Gabapentin 100 MG CAPSULE PO SCH (21:29)
[2018-08-30] MEDS: Budesonide/Formoterol 160/4.5 1 PUFF INH IH SCH (22:10)
[2018-08-31 04:56] LABS: Basophils % 0.7 %; Eosinophils # 0.2 K/mcL (0.0-0.6); Eosinophils % 2.8 %; Hematocrit 29.5 % (35.3-44.9); Hemoglobin 9.7 g/dL (11.5-15.4); Immature Granulocytes % 0.5 % (0-4); Lymphocytes # 1.5 K/mcL (0.6-4.6); Lymphocytes % 26.9 %; Mean Corpuscular HGB Conc 32.9 g/dL (31.6-35.5); Mean Corpuscular Hemoglobin 31.2 pg (28.0-33.3); Mean Corpuscular Volume 94.9 fL (83.0-100.0); Mean Platelet Volume 10.2 fL (9.4-12.4); Monocytes # 0.8 K/mcL (0.0-1.3); Neutrophils # 3.1 K/mcL (1.6-8.9); Red Blood Count 3.11 M/mcL (3.82-4.97); Red Cell Distribution Width 13.6 % (11.5-14.5); Segmented Neutrophils % 55.1 %
[2018-08-31 05:16] LABS: BUN/Creatinine Ratio 31 (6-26); Blood Urea Nitrogen 23 mg/dL (8-23); Calcium 8.3 mg/dL (8.6-10.3); Carbon Dioxide 28 mEq/L (23-29); Chloride 104 mEq/L (98-107); Glucose 95 mg/dL (70-105); Osmolality,Calculated 291 (280-300); Potassium 3.9 mEq/L (3.5-5.1); Sodium 139 mEq/L (136-145); eGFR For Non-African Americans > 60 (> 60)
[2018-08-31 05:22] LABS: Platelet Count 93 K/mcL (140-400)
[2018-08-31 05:28] LABS: Thyroid Stimulating Hormone 3.541 mcIU/mL (0.340-5.600)
[2018-08-31 08:49] LABS: % Iron Saturation 27 % (15-50); Iron 59 mcg/dL (50-170); Transferrin 154 mg/dL (203-362)
[2018-08-31] MEDS: FERROUS SULFATE 134 MG PO SCH (09:00)
[2018-08-31] MEDS: SACUBITRIL/VALSARTAN 24/26 MG TABLET PO SCH ×2 (09:00→20:53)
[2018-08-31] MEDS: (Fluticasone/Vilanterol [Breo Ellipta 200-25 Mcg Inh]) IH SCH ×2 (09:00→20:53)
[2018-08-31 09:07] LABS: Ferritin 121 ng/mL (10-120)
[2018-08-31] MEDS: Multivit/Ca/Min/Fe/FA 1 TAB TABLET PO SCH (09:29)
[2018-08-31] MEDS: Ascorbic Acid 500 MG TABLET PO SCH (09:29)
[2018-08-31] MEDS: Topiramate 25 MG TABLET PO SCH (09:29)
[2018-08-31] MEDS: Metoprolol XL (24 HR) Succ 25 MG TAB.ER.24H PO SCH (09:29)
[2018-08-31] MEDS: Lactobacillus 1 EACH CAP.SPRINK PO SCH ×2 (09:29→20:53)
[2018-08-31] MEDS: cefTRIAXone 1,000 MG in Water for inj. (sterile) 20 ML 10 ML IVP SCH (09:29)
[2018-08-31] MEDS: Furosemide 40 MG TABLET PO SCH (09:29)
[2018-08-31] MEDS: Gabapentin 100 MG CAPSULE PO SCH ×3 (09:29→20:53)
[2018-08-31] MEDS: Azithromycin 500 MG in D5% in Water 250 ML IVPB SCH (09:30)
[2018-08-31] MEDS: Aspirin Enteric Coated 325 MG Tablet PO SCH (09:32)
[2018-08-31] MEDS: Budesonide/Formoterol 160/4.5 1 PUFF INH IH SCH ×2 (10:26→21:44)
--- NOTE | 2018-08-31 11:37 | Internal Med Progress Note ---
Date of Encounter: 08/31/18 Time of Encounter: 11:30 - Assessment and plan (1) Bronchitis Current Visit: Yes Status: Acute Assessment and plan: August 31. Chest CT showed no obvious infiltrate. Continue Rocephin and Zithromax with lactobacillus. (2) Dehydration Current Visit: Yes Status: Acute Assessment and plan: August 31. BUN and creatinine normal at 23 and 0.75 respectively with estimated GFR greater than 60. (3) Heart failure Current Visit: Yes Status: Chronic Assessment and plan: August 31. BN peptide minimally elevated 126. Continue present regimen. Qualifiers: Heart failure type: diastolic Heart failure chronicity: chronic Qualified Code(s): I50.32 - Chronic diastolic (congestive) heart failure (4) Anemia Current Visit: No Status: Acute Assessment and plan: August 31. Iron profile showed iron 59, transferrin saturation 27%, transferrin 154, transferrin 121. Suspect anemia due at least in part to present dose aspirin use. Reduce dose to 81 mg daily and continue to monitor CBC. Qualifiers: Anemia type: unspecified type Qualified Code(s): D64.9 - Anemia, unspecif ied (5) Weakness Current Visit: Yes Status: Acute Assessment and plan: August 31. Continue PT and OT intervention. She will benefit from swing bed/SNF placement for ongoing therapy. (6) Weight loss Current Visit: Yes Status: Acute Assessment and plan: August 31. TSH normal. CT scan of chest/abdomen unremarkable for worrisome pathology. - Subjective Interval history: August 31. She has no new complaints and feels slightly better. She states she coughed up significant amount of colored mucus last evening. She still feels weak and does not feel she will be able to care for herself at this time in the home environment. - Constitutional Vitals: Temp Pulse Resp BP Pulse Ox 97.6 F 70 17 99/64 95 08/31/18 10:56 08/31/18 10:56 08/31/18 10:56 08/31/18 10:56 08/31/18 10:56 Exam: Her affect is bright and cheerful. She did not cough during the visit. I rev iewed her medications and lab results. I discussed CT findings with her. Internal Medicine: Result - Labs CBC & Chem 7: 08/31/18 04:47 08/31/18 04:47 Labs: Short CBC 08/31/18 Range/Units 04:47 WBC 5.7 (4.3-11.1) K/mcL Hgb 9.7 L (11.5-15.4) g/dL Hct 29.5 L (35.3-44.9) % Plt Count 93 L (140-400) K/mcL Neutrophils # 3.1 (1.6-8.9) K/mcL BMP 08/31/18 04:47 Sodium 139 Potassium 3.9 Chloride 104 Carbon Dioxide 28 BUN 23 Creatinine 0.75 Glucose 95 Calcium 8.3 L - ABG Interpretation ABG results: PT/INR, D-dimer PT 11.6 Seconds (9.4-12.1) 08/29/18 16:37 - Impressions Impressions Chest CT 08/30/18 12:16 IMPRESSION: 1. Thick bandlike scarring in the lateral segment middle lobe. 2. 4 mm right lower lobe nodule. 12 month follow-up if patient has high risk factors for lung cancer otherwise no follow-up. 3. Large amount of stool suggests constipation. 4. No suspicious abdominal mass. 5. Sliding hiatal hernia. D/ / Prakash Townsend MD / Prakash Townsend MD Interpreting Provider: Prakash Townsend MD Abdomen/Pelvis CT 08/30/18 12:17 IMPRESSION: 1. Thick bandlike scarring in the lateral segment middle lobe. 2. 4 mm right lower lobe nodule. 12 month follow-up if patient has high risk factors for lung cancer otherwise no follow-up. 3. Large amount of stool suggests constipation. 4. No suspicious abdominal mass. 5. Sliding hiatal hernia. D/ / Prakash Townsend MD / Prakash Townsend MD Interpreting Provider: Prakash Townsend MD Consult Discharge Plan - Plan Referrals: Juan R Garcia, [Primary Care Provider] - 1 week
[2018-08-31] MEDS: Primidone 50 MG TABLET PO SCH (20:53)
[2018-09-01] MEDS: Budesonide/Formoterol 160/4.5 1 PUFF INH IH SCH ×2 (09:33→21:37)
[2018-09-01] MEDS: cefTRIAXone 1,000 MG in Water for inj. (sterile) 20 ML 10 ML IVP SCH (09:50)
[2018-09-01] MEDS: Azithromycin 500 MG in D5% in Water 250 ML IVPB SCH (09:51)
[2018-09-01] MEDS: Lactobacillus 1 EACH CAP.SPRINK PO SCH ×2 (09:52→20:31)
[2018-09-01] MEDS: Furosemide 40 MG TABLET PO SCH (09:52)
[2018-09-01] MEDS: Topiramate 25 MG TABLET PO SCH (09:52)
[2018-09-01] MEDS: Gabapentin 100 MG CAPSULE PO SCH ×3 (09:52→20:31)
[2018-09-01] MEDS: Ascorbic Acid 500 MG TABLET PO SCH (09:52)
[2018-09-01] MEDS: Aspirin Enteric Coated 325 MG Tablet PO SCH (09:53)
[2018-09-01] MEDS: (Fluticasone/Vilanterol [Breo Ellipta 200-25 Mcg Inh]) IH SCH ×2 (09:53→20:31)
[2018-09-01] MEDS: FERROUS SULFATE 134 MG PO SCH (09:53)
[2018-09-01] MEDS: Metoprolol XL (24 HR) Succ 25 MG TAB.ER.24H PO SCH (09:53)
[2018-09-01] MEDS: Multivit/Ca/Min/Fe/FA 1 TAB TABLET PO SCH (09:53)
[2018-09-01] MEDS: SACUBITRIL/VALSARTAN 24/26 MG TABLET PO SCH ×2 (09:53→20:32)
[2018-09-01 14:28] LABS: Bilirubin,Urine Negative (Negative); Blood,Urine Negative (Negative); Clarity,Urine Clear (Clear); Color,Urine Yellow (Yellow); Glucose,Urine (UA) Normal (Normal); Ketones,Urine Negative (Negative); Leukocyte Esterase,Urine Trace (Negative); Nitrite,Urine Negative (Negative); Protein,Urine Negative (Neg-Trace); Urobilinogen,Urine Normal (Normal)
[2018-09-01 14:34] LABS: RBC,Urine 0-3 per hpf (0-3); WBC,Urine 0-3 per hpf (0-3)
[2018-09-01 14:35] LABS: Bacteria,Urine Few per hpf (None-Few); Squamous Epithelial Cell,Urine Moderate per lpf (None-Few)
--- NOTE | 2018-09-01 16:03 | Internal Med Progress Note ---
Date of Encounter: 09/01/18 Time of Encounter: 15:50 - Assessment and plan (1) Bronchitis Current Visit: Yes Status: Acute Assessment and plan: August 31. Chest CT showed no obvious infiltrate. Continue Rocephin and Zithromax with lactobacillus. (2) Dehydration Current Visit: Yes Status: Acute Assessment and plan: August 31. BUN and creatinine normal at 23 and 0.75 respectively with estimated GFR greater than 60. (3) Heart failure Current Visit: Yes Status: Chronic Assessment and plan: August 31. BN peptide minimally elevated 126. Continue present regimen. Qualifiers: Heart failure type: diastolic Heart failure chronicity: chronic Qualified Code(s): I50.32 - Chronic diastolic (congestive) heart failure (4) Anemia Current Visit: No Status: Acute Assessment and plan: August 31. Iron profile showed iron 59, transferrin saturation 27%, transferrin 154, transferrin 121. Suspect anemia due at least in part to present dose aspirin use. Reduce dose to 81 mg daily and continue to monitor CBC. Qualifiers: Anemia type: unspecified type Qualified Code(s): D64.9 - Anemia, unspec ified (5) Weakness Current Visit: Yes Status: Acute Assessment and plan: August 31. Continue PT and OT intervention. She will benefit from swing bed/SNF placement for ongoing therapy. (6) Weight loss Current Visit: Yes Status: Acute Assessment and plan: August 31. TSH normal. CT scan of chest/abdomen unremarkable for worrisome pathology. (7) Urinary retention Current Visit: Yes Status: Acute Assessment and plan: Seborrheic . Shannon catheter inserted. Discontinue Flexeril and monitor. - Subjective Interval history: August 31. She has no new complaints and feels slightly better. She states she coughed up significant amount of colored mucus last evening. She still feels weak and does not feel she will be able to care for herself at this time in the home environment. September 01. She feels better overall. She reported dysuria and sensation of urinary retention earlier. Postvoid residual was 397 mL. Shannon catheter was inserted without difficulty. - Constitutional Vitals: Temp Pulse Resp BP Pulse Ox 97.4 F L 76 18 104/63 93 09/01/18 11:00 09/01/18 11:00 09/01/18 11:00 09/01/18 11:00 09/01/18 07:25 Exam: She is resting comfortably in bed and appears in no acute distress. Her affect is bright and cheerful. I reviewed her medications and lab results. Internal Medicine: Result - Labs CBC & Chem 7: 08/31/18 04:47 08/31/18 04:47 Labs: Urine 09/01/18 Range/Units 14:12 Urine Color Yellow (Yellow) Urine Clarity Clear (Clear) Urine pH 7.0 (5.0-8.0) pH Units Ur Specific Sabin 1.010 (1.010-1.025) Urine Protein Negative (Neg-Trace) mg/dL Urine Glucose (UA) Normal (Normal) mg/dL - ABG Interpretation ABG results: PT/INR, D-dimer PT 11.6 Seconds (9.4-12.1) 08/29/18 16:37 Consult Discharge Plan - Plan Referrals: Juan R Garcia DO [Primary Care Provider] - 1 week
[2018-09-01] MEDS: Primidone 50 MG TABLET PO SCH (20:31)
[2018-09-02] MEDS: Gabapentin 100 MG CAPSULE PO SCH ×3 (09:24→21:09)
[2018-09-02] MEDS: Azithromycin 250 MG TABLET PO SCH (09:24)
[2018-09-02] MEDS: Lactobacillus 1 EACH CAP.SPRINK PO SCH ×2 (09:24→21:08)
[2018-09-02] MEDS: Multivit/Ca/Min/Fe/FA 1 TAB TABLET PO SCH (09:24)
[2018-09-02] MEDS: Furosemide 40 MG TABLET PO SCH (09:24)
[2018-09-02] MEDS: cefTRIAXone 1,000 MG in Water for inj. (sterile) 20 ML 10 ML IVP SCH (09:24)
[2018-09-02] MEDS: Ascorbic Acid 500 MG TABLET PO SCH (09:24)
[2018-09-02] MEDS: Aspirin 81 MG TAB.CHEW PO SCH (09:24)
[2018-09-02] MEDS: (Fluticasone/Vilanterol [Breo Ellipta 200-25 Mcg Inh]) IH SCH (09:25)
[2018-09-02] MEDS: SACUBITRIL/VALSARTAN 24/26 MG TABLET PO SCH ×2 (09:25→21:08)
[2018-09-02] MEDS: Topiramate 25 MG TABLET PO SCH (09:25)
[2018-09-02] MEDS: FERROUS SULFATE 134 MG PO SCH (09:25)
[2018-09-02] MEDS: Metoprolol XL (24 HR) Succ 25 MG TAB.ER.24H PO SCH (09:25)
--- NOTE | 2018-09-02 10:14 | Internal Med Progress Note ---
Date of Encounter: 09/02/18 Time of Encounter: 10:07 - Assessment and plan (1) Bronchitis Current Visit: Yes Status: Acute Assessment and plan: August 31. Chest CT showed no obvious infiltrate. Continue Rocephin and Zithromax with lactobacillus. (2) Dehydration Current Visit: Yes Status: Acute Assessment and plan: August 31. BUN and creatinine normal at 23 and 0.75 respectively with estimated GFR greater than 60. September 02. Recheck labs in a.m. (3) Heart failure Current Visit: Yes Status: Chronic Assessment and plan: August 31. BN peptide minimally elevated 126. Continue present regimen. Qualifiers: Heart failure type: diastolic Heart failure chronicity: chronic Qualified Code(s): I50.32 - Chronic diastolic (congestive) heart failure (4) Anemia Current Visit: No Status: Acute Assessment and plan: August 31. Iron profile showed iron 59, transferrin saturation 27%, transferrin 154, transferrin 121. Suspect anemia due at least in part to present dose aspirin use. Reduce dose to 81 mg daily and continue to monitor CBC. September 02. Recheck labs in a.m. Qualifiers: Anemia type: unspecified type Qualified Code(s): D64.9 - Anemia, unspecified (5) Weakness Current Visit: Yes Status: Acute Assessment and plan: August 31. Continue PT and OT intervention. She will benefit from swing bed/SNF placement for ongoing therapy. September 02. Awaiting insurance approval to go to SNF. (6) Weight loss Current Visit: Yes Status: Acute Assessment and plan: August 31. TSH normal. CT scan of chest/abdomen unremarkable for worrisome pathology. (7) Urinary retention Current Visit: Yes Status: Acute Assessment and plan: September 01. Shannon catheter inserted. Discontinue Flexeril and monitor. September 02. Discontinue Shannon in a.m. and see if spontaneous voiding occurs. - Subjective Interval history: August 31. She has no new complaints and feels slightly better. She states she coughed up significant amount of colored mucus last evening. She still feels weak and does not feel she will be able to care for herself at this time in the home environment. September 01. She feels better overall. She reported dysuria and sensation of urinary retention earlier. Postvoid residual was 397 mL. Shannon catheter was inserted without difficulty. September 02. She has no new complaints. - Constitutional Vitals: Temp Pulse Resp BP Pulse Ox 98.7 F 86 15 102/61 92 09/02/18 06:00 09/02/18 06:00 09/02/18 06:00 09/02/18 06:00 09/02/18 06:00 Exam: She is resting comfortably in bed and appears in no acute distress. Her affect is bright and cheerful. I reviewed her medications and lab results. Internal Medicine: Result - Labs CBC & Chem 7: 08/31/18 04:47 08/31/18 04:47 Labs: Urine 09/01/18 Range/Units 14:12 Urine Color Yellow (Yellow) Urine Clarity Clear (Clear) Urine pH 7.0 (5.0-8.0) pH Units Ur Specific [place] 1.010 (1.010-1.025) Urine Protein Negative (Neg-Trace) mg/dL Urine Glucose (UA) Normal (Normal) mg/dL - ABG Interpretation ABG results: PT/INR, D-dimer PT 11.6 Seconds (9.4-12.1) 08/29/18 16:37 Consult Discharge Plan - Plan Referrals: Juan R Garcia DO [Primary Care Provider] - 1 week
[2018-09-02] MEDS: Budesonide/Formoterol 160/4.5 1 PUFF INH IH SCH ×2 (10:41→21:35)
[2018-09-02] MEDS: Primidone 50 MG TABLET PO SCH (21:09)
[2018-09-03 05:29] LABS: Basophils % 0.3 %; Eosinophils # 0.1 K/mcL (0.0-0.6); Eosinophils % 1.5 %; Hemoglobin 10.1 g/dL (11.5-15.4); Immature Granulocytes % 0.4 % (0-4); Lymphocytes # 1.3 K/mcL (0.6-4.6); Lymphocytes % 17.5 %; Mean Corpuscular HGB Conc 33.7 g/dL (31.6-35.5); Mean Corpuscular Hemoglobin 31.7 pg (28.0-33.3); Mean Platelet Volume 11.2 fL (9.4-12.4); Monocytes # 1.1 K/mcL (0.0-1.3); Monocytes % 15.3 %; Neutrophils # 4.6 K/mcL (1.6-8.9); Platelet Count 115 K/mcL (140-400); Red Blood Count 3.19 M/mcL (3.82-4.97); Red Cell Distribution Width 13.4 % (11.5-14.5)
[2018-09-03 05:51] LABS: BUN/Creatinine Ratio 31 (6-26); Blood Urea Nitrogen 22 mg/dL (8-23); Calcium 8.5 mg/dL (8.6-10.3); Carbon Dioxide 29 mEq/L (23-29); Chloride 101 mEq/L (98-107); Glucose 98 mg/dL (70-105); Osmolality,Calculated 285 (280-300); Potassium 3.7 mEq/L (3.5-5.1); Sodium 136 mEq/L (136-145); eGFR For Non-African Americans > 60 (> 60)
[2018-09-03] MEDS: Ascorbic Acid 500 MG TABLET PO SCH (08:47)
[2018-09-03] MEDS: Lactobacillus 1 EACH CAP.SPRINK PO SCH ×2 (08:47→21:39)
[2018-09-03] MEDS: Multivit/Ca/Min/Fe/FA 1 TAB TABLET PO SCH (08:48)
[2018-09-03] MEDS: Gabapentin 100 MG CAPSULE PO SCH ×3 (08:48→21:39)
[2018-09-03] MEDS: Azithromycin 250 MG TABLET PO SCH (08:48)
[2018-09-03] MEDS: SACUBITRIL/VALSARTAN 24/26 MG TABLET PO SCH ×2 (08:49→21:39)
[2018-09-03] MEDS: Furosemide 40 MG TABLET PO SCH (08:49)
[2018-09-03] MEDS: Topiramate 25 MG TABLET PO SCH (08:49)
[2018-09-03] MEDS: Aspirin 81 MG TAB.CHEW PO SCH (08:49)
[2018-09-03] MEDS: Metoprolol XL (24 HR) Succ 25 MG TAB.ER.24H PO SCH (08:55)
[2018-09-03] MEDS: Budesonide/Formoterol 160/4.5 1 PUFF INH IH SCH ×2 (10:35→23:09)
[2018-09-03] MEDS ORDERED: Colchicine 0.6 MG TABLET PO ONE (11:45)
[2018-09-03] MEDS: cefTRIAXone 1,000 MG in Water for inj. (sterile) 20 ML 10 ML IVP SCH (12:21)
[2018-09-03] MEDS: Indomethacin 25 MG CAPSULE PO SCH ×2 (12:31→16:33)
[2018-09-03] MEDS: Primidone 50 MG TABLET PO SCH (21:39)
[2018-09-04] MEDS: Indomethacin 25 MG CAPSULE PO SCH ×2 (08:05→12:08)
[2018-09-04] MEDS: Multivit/Ca/Min/Fe/FA 1 TAB TABLET PO SCH (08:06)
[2018-09-04] MEDS: Metoprolol XL (24 HR) Succ 25 MG TAB.ER.24H PO SCH (08:06)
[2018-09-04] MEDS: Topiramate 25 MG TABLET PO SCH (08:06)
[2018-09-04] MEDS: Ascorbic Acid 500 MG TABLET PO SCH (08:06)
[2018-09-04] MEDS: Azithromycin 250 MG TABLET PO SCH (08:06)
[2018-09-04] MEDS: Lactobacillus 1 EACH CAP.SPRINK PO SCH (08:06)
[2018-09-04] MEDS: Gabapentin 100 MG CAPSULE PO SCH (08:06)
[2018-09-04] MEDS: Furosemide 40 MG TABLET PO SCH (08:06)
[2018-09-04] MEDS: cefTRIAXone 1,000 MG in Water for inj. (sterile) 20 ML 10 ML IVP SCH (08:07)
[2018-09-04] MEDS: SACUBITRIL/VALSARTAN 24/26 MG TABLET PO SCH (08:07)
--- NOTE | 2018-09-04 11:11 | Discharge Summary ---
Date of Encounter: 09/04/18 Time of Encounter: 10:58 - Discharge Diagnosis (1) Bronchitis Priority: Primary Status: Acute (2) Dehydration Priority: Secondary Status: Acute (3) Heart failure Priority: Secondary Status: Chronic Qualifiers: Heart failure type: diastolic Heart failure chronicity: chronic Qualified Code(s): I50.32 - Chronic diastolic (congestive) heart failure (4) Anemia Priority: Secondary Status: Acute Qualifiers: Anemia type: unspecified type Qualified Code(s): D64.9 - Anemia, unspe cified (5) Weakness Priority: Secondary Status: Acute (6) Weight loss Priority: Secondary Status: Acute (7) Urinary retention Priority: Secondary Status: Acute (8) Gout Priority: Secondary Status: Suspected Qualifiers: Gout site: foot Gout etiology: unspecified cause Chronicity: acute Laterality: right Qualified Code(s): M10.9 - Gout, unspecified Hospital course: Ms. Oliveira is a 87 year old female who came to emergency room from her PCP office after she was found to have unimproved respiratory infection symptoms following 1 week treatment with antibiotics, cough syrup and nebulizers. She was evaluated in emergency room and felt to have possible pneumonia and was admitted to [facility] for ongoing care needs. Initial orders were written by the emergency room physician. I saw her on August 30 and performed a history and physical. She was started empirically on Rocephin and Zithromax with lactobacillus. Chest CT was done to further evaluate. Her was a thick bandlike scarring in the lateral segment of the middle lobe. A 4 mm right lower lobe nodule was seen. No obvious infiltrate or other worrisome pathology was noted. She had clinical improvement and remained afebrile the last 48 hours of hospitalization. She will not continue antibiotics at discharge. BUN and creatinine normalized to 22 and 0.71 respectively by 09/03/2018. These can be monitored at the [facility]. Anemia testing showed iron 59, transferrin saturation 27%, transferrin 154, and ferritin 121. Supplemental ferrous sulfate and ascorbic acid will be discon tinued. Aspirin was discontinued and hemoglobin was stable at 10.1 on September 03. She had acute pain and redness develop in the right ankle on September 03. Uric acid level returned normal at 6.0. I was suspicious she had gout and gave her colchicine and indomethacin empirically. Pain completely resolved within 24 hours and she was able to bear weight and participate in therapy. She will con tinue with Indocin for 2 additional days and be started on low dose allopurinol 100 mg daily. Her PCP can monitor and adjust medications as needed. On September 04 word was received that insurance has approved her to be transferred to [facility] for ongoing care needs. She will follow with her PCP Dr. Garcia there. - Time Spent with Patient Total time spent providing and/or coordinating discharge services: - Discharge Medications Prescriptions: New Allopurinol [Zyloprim 100 MG] 100 mg PO DAILY 365 Days tablet Indomethacin [Indocin] 25 mg PO BIDWM 2 Days capsule Continue Sacubitril/Valsartan 24/26 mg [Entresto 24 mg-26 mg Tablet] 1 tab PO BID Budesonide/Formoterol 160/4.5 [Symbicort 160/4.5] 2 puff IH BIDR Gabapentin [Neurontin] 100 mg PO TID Multivit-Min/Folic Acid/Vit K1 [Multi For Her 50 Plus Softgel] 1 each PO DAILY Furosemide [Lasix] 40 mg PO DAILY Potassium Chloride [Klor-Con 10] 10 meq PO QAM Metoprolol Succinate [Toprol Xl] 25 mg PO QAM Topiramate [Topamax] 25 mg PO QAM Primidone [Mysoline] 150 mg PO HS Losartan [Cozaar] 50 mg PO DAILY Fluticasone/Vilanterol [Breo Ellipta 200-25 Mcg INH] 1 each IH BID Discontinued Cyclobenzaprine [Flexeril] 10 mg PO TID Ascorbate Calcium [Vitamin C] 500 mg PO DAILY Ferrous Sulfate [High Potency Iron] 134 mg PO QAM Aspirin [Ecotrin] 325 mg PO DAILY Home Medications: Gabapentin [Neurontin] 100 mg PO TID 09/21/17 [History] Multivit-Min/Folic Acid/Vit K1 [Multi For Her 50 Plus Softgel] 1 each PO DAILY 09/21/17 [History] Furosemide [Lasix] 40 mg PO DAILY 05/23/18 [History] Metoprolol Succinate [Toprol Xl] 25 mg PO QAM 05/23/18 [History] Potassium Chloride [Klor-Con 10] 10 meq PO QAM 05/23/18 [History] Primidone [Mysoline] 150 mg PO HS 05/23/18 [History] Topiramate [Topamax] 25 mg PO QAM 05/23/18 [History] Budesonide/Formoterol 160/4.5 [Symbicort 160/4.5] 2 puff IH BIDR 08/16/18 [History] Sacubitril/Valsartan 24/26 mg [Entresto 24 mg-26 mg Tablet] 1 tab PO BID 08/16/18 [History] Fluticasone/Vilanterol [Breo Ellipta 200-25 Mcg INH] 1 each IH BID 08/29/18 [History] Losartan [Cozaar] 50 mg PO DAILY 08/29/18 [History] Allopurinol [Zyloprim 100 MG] 100 mg PO DAILY 365 Days tablet 09/04/18 [Rx] Indomethacin [Indocin] 25 mg PO BIDWM 2 Days capsule 09/04/18 [Rx] Allergies/Adverse Reactions: Allergy/AdvReac Type Severity Reaction Status Date / Time Sulfa (Sulfonamide Allergy Anaphylaxis Verified 08/29/18 16:19 Antibiotics) Date of admission: 08/30/18 12:51 Primary care physician: Juan R Garcia DO Consults: 08/29/18 18:26 Consult to Nurse Navigator [CONS] Routine Comment: 08/30/18 12:18 Consult to Occupational Therapy [CONS] Routine Comment: Evaluate, develop and implement POC Reason for Consult: Weakness Does patient have active BEDREST order?: No Is patient medically & hemodynamically stable?: Yes Patient assessed for mobility or mobilized this visit?: Yes Consult to Physical Therapy [CONS] Routine Comment: Evaluate, develop and implement POC Reason for Consult: Weakness Does patient have active BEDREST order?: No Is patient medically & hemodynamically stable?: Yes Patient assessed for mobility or mobilized this visit?: Yes - Constitutional Vitals: Temp Pulse Resp BP Pulse Ox 98 F 68 17 107/68 96 09/04/18 06:25 09/04/18 06:25 09/04/18 06:25 09/04/18 06:25 09/04/18 06:25 - Patient Status Disposition: Transfer SNF Condition: Fair - Discharge Instructions Follow Up With: Juan R Garcia DO [Primary Care Provider] - 1 week - Diet and Activity Activity: as per physical therapy Diet: low salt diet
[2018-09-04 11:12] VITALS: BP 142/89
[2018-09-04] MEDS: Budesonide/Formoterol 160/4.5 1 PUFF INH IH SCH (11:17)
--- NOTE | 2018-09-04 11:19 | Physician Discharge Referral ---
ExtendedCare Referral Info Transfer To: [facility] Provider in Charge: Wilder Provider in Charge after Transfer: PCP Amanda) Institutional Level of Care: Skilled - Diagnosis (1) Bronchitis Priority: Primary Status: Acute (2) Dehydration Priority: Secondary Status: Resolved (3) Heart failure Priority: Secondary Status: Chronic (4) Anemia Priority: Secondary Status: Acute (5) Weakness Priority: Secondary Status: Acute (6) Weight loss Priority: Secondary Status: Acute (7) Urinary retention Priority: Secondary Status: Resolved (8) Gout Priority: Secondary Status: Suspected Prognosis: Good Aware of Diagnosis: Patient Aware of Prognosis: Patient - Transfer Medications Prescriptions: Allopurinol [Zyloprim 100 MG] 100 mg PO DAILY 365 Days tablet Indomethacin [Indocin] 25 mg PO BIDWM 2 Days capsule Home Medications: Gabapentin [Neurontin] 100 mg PO TID 09/21/17 [History] Multivit-Min/Folic Acid/Vit K1 [Multi For Her 50 Plus Softgel] 1 each PO DAILY 09/21/17 [History] Furosemide [Lasix] 40 mg PO DAILY 05/23/18 [History] Metoprolol Succinate [Toprol Xl] 25 mg PO QAM 05/23/18 [History] Potassium Chloride [Klor-Con 10] 10 meq PO QAM 05/23/18 [History] Primidone [Mysoline] 150 mg PO HS 05/23/18 [History] Topiramate [Topamax] 25 mg PO QAM 05/23/18 [History] Budesonide/Formoterol 160/4.5 [Symbicort 160/4.5] 2 puff IH BIDR 08/16/18 [History] Sacubitril/Valsartan 24/26 mg [Entresto 24 mg-26 mg Tablet] 1 tab PO BID 08/16/18 [History] Fluticasone/Vilanterol [Breo Ellipta 200-25 Mcg INH] 1 each IH BID 08/29/18 [History] Losartan [Cozaar] 50 mg PO DAILY 08/29/18 [History] Allopurinol [Zyloprim 100 MG] 100 mg PO DAILY 365 Days tablet 09/04/18 [Rx] Indomethacin [Indocin] 25 mg PO BIDWM 2 Days capsule 09/04/18 [Rx] Allergies/Adverse Reactions: Allergy/AdvReac Type Severity Reaction Status Date / Time Sulfa (Sulfonamide Allergy Anaphylaxis Verified 08/29/18 16:19 Antibiotics) - Respiratory Orders Smoking Cessation: Smoking cessation has been advised. For more information, call the [place] Tobacco Quit Line at 9-504-SZMR-NOW. - Advance Directives Code Status: Full Code - Rehabiliation Orders Rehab Potential: Good Rehab Orders: Evaluation for Physical Therapy, Evaluation for Occupational Therapy - Diet Orders Cardiac CERTIFICATION: I certify that the transfer of the above named patient to an Extended Care Facility is necessary for the continuing treatment of the diagnosis listed. The above information is true and accurate reflection of patient's current condition. Confidential - Redisclosure prohibited without a patient's written consent.
== END 2018-09-04 12:45 | DRG 202 ==
LOC: INPPIK 16:16 → EMEROOPIK 16:16 → INPPIK 18:56
PROVIDERS: ADMIT Internal Medicine; ATTEND Internal Medicine